=== PATIENT | male | born 1945 ===

== ENCOUNTER 2016-12-06 15:33 | Emergency (ER) | payer MEDICARE ==
[2016-12-06 15:48] VITALS: BP 148/83; PULSE 63; RESP 18; TEMP 98.1; BMI 26.7
--- NOTE | 2016-12-06 15:57 | ED PDOC ---
Arrival/HPI - General Time Seen by Provider: 12/06/16 15:36 Historian: Patient - History of Present Illness Narrative History of Present Illness (Text): 12/06/16 15:53 71 y/o male, pmh including dm/hyperlipidemia, nkda, last tetanus doesn't remember, c/o lt. hand 2nd digit finger laceration by knife x 2 hours. pt. stated that he was trying to use the knife, accidentally slipped and cut the lt. hand 2nd digit tip, no numbness or tingling, no fever or chills, no headache or night sweat, no rash, bleeding resolved, no other medical or psychological complaints. Past Medical History - Provider Review Nursing Documentation Reviewed: Yes - Infectious Disease Hx of Infectious Diseases: None - Tetanus Immunization Tetanus Immunization: Unknown - Cardiac Hx Hyperlipemia: Yes Hx Hypertension: Yes - Neurological Hx Paralysis: No - Endocrine/Metabolic Hx Diabetes Mellitus Type 2: Yes - Hematological/Oncological Hx Blood Transfusion Reaction: (NA) - Musculoskeletal/Rheumatological Hx Musculoskeletal Disorders: No - Psychiatric Hx Psychophysiologic Disorder: No Hx Anxiety: No Hx Bipolar Disorder: No Hx Depression: No Hx Emotional Abuse: No Hx Hallucinations: No Hx Panic Disorder: No Hx Paranoia: No Hx Post Traumatic Stress Disorder: No Hx Psychosis: No Hx Physical Abuse: No Hx Schizophrenia: No Hx Sexual Abuse: No Hx Substance Use: No - Anesthesia Hx Anesthesia: Yes Hx Anesthesia Reactions: No Hx Malignant Hyperthermia: No - Suicidal Assessment Feels Threatened In Home Enviroment: No Family/Social History - Physician Review Nursing Documentation Reviewed: Yes Family/Social History: Unknown Family HX Smoking Status: Never Smoked Hx Alcohol Use: No Hx Substance Use: No Hx Substance Use Treatment: No Allergies/Home Meds Allergies/Adverse Reactions: Allergies No Known Allergies Allergy (Verified 12/06/16 15:49) Home Medications: Home Meds Medication Instructions Recorded Confirmed Atorvastatin [Lipitor] 40 mg PO Q48H 06/27/13 12/06/16 metFORMIN [glucOPHAGE] 500 mg PO BID 12/06/16 12/06/16 Review of Systems - Review of Systems Constitutional: absent: Fatigue, Fevers Eyes: absent: Vision Changes ENT: absent: Hearing Changes Respiratory: absent: SOB, Cough Cardiovascular: absent: Chest Pain Gastrointestinal: absent: Abdominal Pain, Nausea, Vomiting Skin: Laceration. absent: Rash, Pruritis, Skin Lesions, Abscess, Ulcer, Cellulitis Neurological: absent: Headache, Dizziness Physical Exam Vital Signs Reviewed: Yes Vital Signs Temp Pulse Resp BP Pulse Ox 12/06/16 16:17 98.1 F 63 18 148/83 95 12/06/16 15:48 98.1 F 63 18 148/83 95 Temperature: Afebrile Blood Pressure: Normal Pulse: Regular Respiratory Rate: Normal Appearance: Positive for: Well-Appearing, Non-Toxic, Comfortable Pain Distress: Mild Mental Status: Positive for: Alert and Oriented X 3 - Systems Exam Head: Present: Atraumatic, Normocephalic Pupils: Present: PERRL Extroacular Muscles: Present: EOMI Conjunctiva: Present: Normal Mouth: Present: Moist Mucous Membranes Respiratory/Chest: Present: Clear to Auscultation, Good Air Exchange. No: Respiratory Distress, Accessory Muscle Use Cardiovascular: Present: Regular Rate and Rhythm, Normal S1, S2. No: Murmurs Abdomen: Present: Normal Bowel Sounds. No: Tenderness, Distention, Peritoneal Signs Upper Extremity: Present: Normal Inspection, Other (lt. hand 2nd digit distal ventral pad region approx. 1.25cm superficial laceration, FROM without limitation ,sensation intact, motor 5/5, normal 2pts. finger discrimination. ). No: Cyanosis, Edema Lower Extremity: Present: Normal Inspection. No: Edema Neurological: Present: GCS=15, Speech Normal, Motor Func Grossly Intact, Gait Normal, Memory Normal Skin: Present: Warm, Dry, Normal Color. No: Rashes Psychiatric: Present: Alert, Oriented x 3, Normal Insight, Normal Concentration Medical Decision Making ED Course and Treatment: 12/06/16 15:59 -clindamycin/tdap -sensation intact, motor 5/5, wound irrigate with normal saline 1000cc, clean with betadine, 1% lidocaine digital block on the lt. hand 2nd digit with 1.5cc, 5-0 nylon made 4 sutures, hemostasis obtained, bacitracin apply, gauze dressing , sensation intact, motor 5/5. -Discharge home with clindamycin, bacitracin oinment, take tylenol or motrin for pain, follow up with your own pmd and hand specialist within 2 days, sutures need to be removed by day 11-12 , avoid strenuous exercise or activity, follow up with your own pmd and hand specialist within 2 days, return to the ER for any new or worsening signs or symptoms. 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 Disposition/Present on Arrival - Present on Arrival Any Indicators Present on Arrival: No History of DVT/PE: No History of Uncontrolled Diabetes: No Urinary Catheter: No History of Decub. Ulcer: No History Surgical Site Infection Following: None - Disposition Have Diagnosis and Disposition been Completed?: Yes Diagnosis: Finger laceration Disposition: HOME/ ROUTINE Disposition Time: 16:01 Patient Plan: Discharge Patient Problems: Current Active Problems Problem Status Onset Finger laceration Acute Condition: GOOD Additional Instructions: -Discharge home with clindamycin, bacitracin oinment, take tylenol or motrin for pain, follow up with your own pmd and hand specialist within 2 days, sutures need to be removed by day 11-12 , avoid strenuous exercise or activity, follow up with your own pmd and hand specialist within 2 days, return to the ER for any new or worsening signs or symptoms. Prescriptions: Acetaminophen [Tylenol 325mg tab] 2 tab PO QID PRN #30 tab PRN Reason: Other RX: Bacitracin Ointment [Bacitracin] 1 appful TOP BID #15 g RX: Clindamycin [Cleocin] 300 mg PO TID #27 cap Referrals: Nayla Obando MD [Non-Staff] - [place] up with primary [facility] [place] - Follow up with primary Forms: WORK NOTE
[2016-12-06] MEDS ORDERED: TDAP Vaccine 0.5 mL Syr IM ONE (16:02)
[2016-12-06] MEDS ORDERED: Lidocaine 2% Inj (20ml) IJ STA (16:02)
[2016-12-06 16:36] VITALS: O2SAT 99
== END 2016-12-06 16:36 | disposition home or self-care (01) ==
LOC: ED 15:33
DX: S61.211A Laceration without foreign body of left index finger without damage to nail, initial encounter (principal); W26.0XXA Contact with knife, initial encounter; Y93.G3 Activity, cooking and baking; Y92.000 Kitchen of unspecified non-institutional (private) residence as the place of occurrence of the external cause; Z23 Encounter for immunization

== ENCOUNTER 2017-06-18 13:14 | Inpatient (IN) | payer OTHER, MEDICARE ==
[2017-06-18 13:15] VITALS: BMI 26.7
[2017-06-18] MEDS ORDERED: Iohexol 350 MG/100 ML VIAL ONE (14:29)
[2017-06-18 14:35] LABS: BASO # 0.03 K/mm3 (0.0-2.0); BASO % 0.3 % (0.0-3.0); EOS # 0.2 (0.0-0.7); EOS % 2.1 % (1.5-5.0); GRAN # 7.62 (1.4-6.5); GRAN % 77.2 % (50.0-68.0); HEMOGLOBIN 14.6 g/dL (14.0-18.0); LYMPH # 1.6 (1.2-3.4); LYMPH % 16.2 % (22.0-35.0); MEAN CORPUSCULAR HEMOGLOBIN 28.1 pg (25.0-35.0); MEAN CORPUSCULAR HGB CONC 33.9 g/dl (31.0-37.0); MEAN PLATELET VOLUME 9.3 fl (7.0-11.0); MONO # 0.4 (0.1-0.6); MONO % 4.2 % (1.0-6.0); RBC 5.19 10^6/uL (3.5-6.1); RED CELL DISTRIBUTION WIDTH 13.7 % (11.5-14.5); WHITE BLOOD COUNT 9.9 10^3/ul (4.5-11.0)
[2017-06-18 14:46] LABS: ALB/GLOB RATIO 1.6 (1.1-1.8); ALBUMIN 4.7 g/dL (3.0-4.8); ALT/SGPT 41 U/L (7-56); AST/SGOT 24 U/L (17-59); BLOOD UREA NITROGEN 16 mg/dL (7-21); CALCIUM 9.7 mg/dL (8.4-10.5); GFR AFRICAN-AMERICAN > 60; GFR NON-AFRICAN AMERICAN > 60; HDL CHOLESTEROL 45 mg/dL (29-60)
[2017-06-18 14:50] LABS: INR 1.15 (0.93-1.08); PARTIAL THROMBOPLASTIN TIME 31.8 Seconds (25.1-36.5); PROTHROMBIN TIME 13.1 SECONDS (9.4-12.5)
--- NOTE | 2017-06-18 14:50 | CT ---
PROCEDURE: CT HEAD WITHOUT CONTRAST. HISTORY: Code Stroke COMPARISON: None available. TECHNIQUE: Axial computed tomography images were obtained through the head/brain without intravenous contrast. Radiation dose: Total exam DLP = 831.68 mGy-cm. This CT exam was performed using one or more of the following dose reduction techniques: Automated exposure control, adjustment of the mA and/or kV according to patient size, and/or use of iterative reconstruction technique. FINDINGS: HEMORRHAGE: No intracranial hemorrhage. BRAIN: Iraheta-white matter differentiation is preserved. There is no mass, mass effect or abnormal extra-axial fluid collection. There is no territorial infarction. VENTRICLES: The ventricles are normal in size, shape and configuration. CALVARIUM: The skull base and calvarium are normal. PARANASAL SINUSES: Predominantly clear. MASTOID AIR CELLS: Predominantly clear. OTHER FINDINGS: None. IMPRESSION: No acute intracranial abnormality. If there is a persistent focal neurologic deficit and an ongoing clinical concern for acute infarction, an MRI of the brain without intravenous contrast would be a more sensitive modality for evaluation of hyperacute/acute ischemic infarction. Important findings were discussed with Dr. Juan Jose Pratt in the ER on 06/18/2017 at 2:45 p.m.
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
[2017-06-18 14:57] LABS: LDL CHOLESTEROL 60 mg/dL (0-129)
[2017-06-18 15:00] LABS: TROPONIN I < 0.01 ng/mL
--- NOTE | 2017-06-18 15:01 | RAD ---
HISTORY: Code Stroke COMPARISON: 02/12/2014 FINDINGS: LUNGS: The lungs are well inflated and clear. PLEURA: No significant pleural effusion identified, no pneumothorax apparent. CARDIOVASCULAR: Normal. OSSEOUS STRUCTURES: No significant abnormalities. VISUALIZED UPPER ABDOMEN: Normal. OTHER FINDINGS: None. IMPRESSION: No active pulmonary disease.
[2017-06-18] MEDS ORDERED: Aspirin 325 mg EC Tablets PO STA (15:21)
--- NOTE | 2017-06-18 15:45 | CT ---
PROCEDURE: CTA HEAD AND NECK WITH CONTRAST HISTORY: code stroke COMPARISON: None available. TECHNIQUE: Initial noncontrast head CT was performed. Subsequently, CT angiogram of the head and neck were performed after the intravenous administration of 80 mL of Omnipaque 350. Contiguous 1.5mm thick images were obtained in the axial plane of the neck. 2-D coronal and sagittal MPR images were obtained. Imaging postprocessing was performed with 3-D images also obtained. A delayed contrast head CT was also obtained. This CT exam was performed using one or more of the following dose reduction techniques: Automated exposure control, adjustment of the mA and/or kV according to patient size, and/or use of iterative reconstruction technique. Contrast dose: 100 mL Omnipaque 350 Radiation dose: Total exam DLP = 564.73 MGy-cm. FINDINGS: HEAD: Right: The intracranial internal carotid artery, and anterior and middle cerebral arteries are widely patent. Left: The intracranial internal carotid artery, and anterior and middle cerebral arteries are widely patent. Posterior circulation: The visualized intracranial vertebral arteries, basilar artery and posterior cerebral arteries are widely patent. Ther is no endoluminal filling defect to suggest thrombus. There is no intracranial saccular aneurysm. There is no abnormal enhancement on the postcontrast CT. NECK: There is a three vessel aortic arch. There is no stenosis at the origins of the great vessels at the level of the aortic arch. Right Carotid: On the right, the common carotid, internal carotid and external carotid arteries are widely patent. There is no hemodynamically significant stenosis in the internal carotid artery by NASCET criteria. Left Carotid: On the left, the common carotid, internal carotid and external carotid arteries are widely patent. There is no hemodynamically significant stenosis in the internal carotid artery by NASCET criteria. The vertebral arteries are widely patent. The left vertebral artery is dominant, an anatomic variant. The visualized soft tissues of the neck are normal. The visualized brain and cervical spine are within normal limits. The lung apices are clear. IMPRESSION: 1. No evidence of endoluminal, occlusion or definite significant stenosis. 2. No evidence of hemodynamically significant stenosis in the internal carotid arteries by NASCET criteria. 3. Patent bilateral vertebral arteries. The left vertebral artery is dominant, an anatomic variant
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
--- NOTE | 2017-06-18 16:29 | MRI ---
PROCEDURE: MRI BRAIN WITHOUT CONTRAST HISTORY: code stroke; r/o CVA COMPARISON: Noncontrast head CT performed earlier the same day TECHNIQUE: Multiplanar, multisequence MR images of the brain were obtained without intravenous contrast enhancement. FINDINGS: HEMORRHAGE: None DWI: No evidence of an acute or early subacute infarction. BRAIN PARENCHYMA: There are mild chronic microangiopathic changes. There is no mass, mass effect or abnormal extra-axial fluid collection. The midline sagittal structures are normal. There is no territorial infarction. VENTRICLES: There is mild age-related global parenchymal volume loss and proportionate enlargement of the ventricles and cortical sulci. CRANIUM: There is normal bone marrow signal pattern. ORBITS: Grossly unremarkable. PARANASAL SINUSES/MASTOIDS: Predominantly clear. VASCULAR SYSTEM: There are normal signal voids in the larger intracranial arteries. . OTHER FINDINGS: None. IMPRESSION: No acute intracranial abnormality. Mild chronic microangiopathic changes and mild age-related global parenchymal volume loss.
[2017-06-18] MEDS: Sodium Chloride 0.9% 1,000 ML IV SCH (16:51)
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
--- NOTE | 2017-06-18 19:25 | CARD ---
APPROVED REPORT EKG Measurement Heart [id number] <Conclusion> Normal sinus rhythm Normal ECG
[2017-06-18] MEDS: Insulin Reg-MEDIUM-Coverage SC SCH (22:39)
[2017-06-19] MEDS: Sodium Chloride 0.9% 1,000 ML IV SCH (00:31)
[2017-06-19 08:26] VITALS: O2SAT 99
[2017-06-19] MEDS: Insulin Reg-MEDIUM-Coverage SC SCH (08:28)
[2017-06-19] MEDS ORDERED: Enoxaparin 40 mg Syringe SC SCH (10:00)
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
[2017-06-19 13:26] VITALS: BP 133/83; PULSE 61; RESP 20; TEMP 97.5
--- NOTE | 2017-06-19 23:35 | CARD ---
APPROVED REPORT EXAM: Two-dimensional and M-mode echocardiogram with Doppler and color Doppler. INDICATION 2D DIMENSIONS Left Atrium (2D)3.6 (1.6-4.0cm)IVSd1.2 (0.7-1.1cm) LVDd4.4 (3.9-5.9cm)PWd1.1 (0.7-1.1cm) LVDs3.0 (2.5-4.0cm)FS (%) 31.7 % LVEF (%)60.0 (>50%) M-Mode DIMENSIONS Left Atrium (MM)4.00 (2.5-4.0cm)Aortic Root2.90 (2.2-3.7cm) Aortic Cusp Exc.1.90 (1.5-2.0cm) Aortic Valve AoV Peak Uveauwbb425.0cm/Radha Peak GR.9mmHg Mitral Valve MV E Nxgjrhnh28.4cm/sMV A Ctfjpzuz86.1cm/sE/A ratio0.9 TDI Lateral E' Peak V10.30cm/sMedial E' Peak V6.82cm/sE/Lateral E'4.8 E/Medial E'7.2 Tricuspid Valve TR Peak Ltccuovk043oc/sRAP [id number] Peak Gr.23mmHg [id number] LEFT VENTRICLE The left ventricle is normal size. There is borderline concentric left ventricular hypertrophy. The left ventricular function is normal. The left ventricular ejection fraction is within the normal range. There is normal LV segmental wall motion. Transmitral Doppler flow pattern is Grade I-abnormal relaxation pattern. RIGHT VENTRICLE The right ventricle is normal size. There is normal right ventricular wall thickness. The right ventricular systolic function is normal. ATRIA The left atrium size is normal. The right atrium size is normal. AORTIC VALVE The aortic valve is normal in structure. No aortic regurgitation is present. There is no aortic valvular stenosis. MITRAL VALVE The mitral valve is normal in structure. Mitral regurgitation is trace. There is no mitral valve stenosis. TRICUSPID VALVE The tricuspid valve is normal in structure. There is no tricuspid valve regurgitation noted. PULMONIC VALVE The pulmonary valve is normal in structure. There is trace pulmonic valvular regurgitation. GREAT VESSELS The aortic root is normal in size. PERICARDIAL EFFUSION There is a trace loculated anterior pericardial effusion. <Conclusion> The left ventricle is normal size. There is borderline concentric left ventricular hypertrophy. The left ventricular function is normal. The left ventricular ejection fraction is within the normal range. There is normal LV segmental wall motion. Transmitral Doppler flow pattern is Grade I-abnormal relaxation pattern.
== END 2017-06-19 15:01 | disposition home or self-care (01) | DRG 884 ==
LOC: ED 13:14 → ERH 16:52 → 2RSO 18:32
PROVIDERS: ADMIT Internal Medicine; ATTEND Internal Medicine
DX: F03.90 Unspecified dementia, unspecified severity, without behavioral disturbance, psychotic disturbance, mood disturbance, and anxiety (principal); I25.10 Atherosclerotic heart disease of native coronary artery without angina pectoris; E11.51 Type 2 diabetes mellitus with diabetic peripheral angiopathy without gangrene; E78.5 Hyperlipidemia, unspecified; I10 Essential (primary) hypertension; V89.2XXA Person injured in unspecified motor-vehicle accident, traffic, initial encounter; Y92.481 Parking lot as the place of occurrence of the external cause; Z80.0 Family history of malignant neoplasm of digestive organs; Z80.51 Family history of malignant neoplasm of kidney

== ENCOUNTER 2018-06-01 08:33 | Outpatient (CLI) | payer MEDICARE | END 2018-06-01 08:34 | disposition home or self-care (01) | LOC: LAB 08:33 ==

== ENCOUNTER 2018-06-14 09:27 | Emergency (ER) | payer MEDICARE ==
[2018-06-14 09:45] VITALS: RESP 19
[2018-06-14 09:46] VITALS: BMI 26.4
--- NOTE | 2018-06-14 10:01 | ED PDOC ---
Arrival/HPI - General Chief Complaint: Lower Extremity Problem/Injury Time Seen by Provider: 06/14/18 09:28 Historian: Patient - History of Present Illness Narrative History of Present Illness (Text): 06/14/18 09:55 73-year-old male presents today with left hip and lateral thigh pain status post fall yesterday. Patient states yesterday while was raining he slipped and fell on the steps landing hitting the lateral aspect of the left leg on the edge of the step. No medications have been taken for pain at home. Patient denies hitting his head. He denies chest pain or shortness of breath. He denies abdominal pain. He denies nausea vomiting diarrhea constipation. He denies numbness weakness or tingling in the extremity. Patient states the pain is worse when he tries to raise his leg. Patient denies back pain. No urinary symptoms. No bladder or bowel incontinence. No other complaints Past Medical History - Provider Review Nursing Documentation Reviewed: Yes - Travel History Have you recently traveled outside [place] w/in the past 3 mons?: No - Past History Past History: No Previous - Infectious Disease Hx of Infectious Diseases: None - Tetanus Immunization Tetanus Immunization: Unknown - Cardiac Hx Cardiac Disorders: Yes Hx Angina: Yes Hx Hypertension: Yes Hx Pacemaker: No Hx Peripheral Edema: Yes Hx Peripheral Vascular Disease: Yes - Pulmonary Hx Respiratory Disorders: Yes Hx Asthma: Yes Hx Bronchitis: Yes Hx Respiratory Tract Infection: Yes - Neurological Hx Neurological Disorder: Yes Hx Dizziness: Yes Hx Paralysis: No - HEENT Hx HEENT Disorder: Yes Hx Cataracts: Yes (pt was told has cararact problem) - Renal Hx Renal Disorder: No Hx Kidney Stones: No Hx Neurogenic Bladder: No Hx Pyelonephritis: No Hx Renal Cancer: No Hx Renal Failure: No - Endocrine/Metabolic Hx Endocrine Disorders: Yes Hx Adrenal Cancer: No Hx Diabetes Insipidus: No Hx Diabetes Mellitus Type 1: Yes Hx Diabetes Mellitus Type 2: Yes Hx Hyperthyroidism: No Hx Hypothyroidism: No Hx Systemic Lupus Erythematosus: No - Hematological/Oncological Hx Blood Disorders: Yes Hx Anemia: Yes Hx Blood Transfusions: No Hx Blood Transfusion Reaction: (NA) Hx Hemophilia: No Hx Sickle Cell Disease: No - Integumentary Hx Dermatological Disorder: No - Musculoskeletal/Rheumatological Hx Musculoskeletal Disorders: Yes Hx Arthritis: Yes Hx Back Pain: No Hx Degenerative Joint Disease: No Hx Falls: Yes Hx Fractures: Yes Hx Gout: No Hx Herniated Disk: No Hx Myasthenia Gravis: No Hx Osteoarthritis: No Hx Osteomyelitis: No Hx Osteoporosis: No Hx Rhabdomyolysis: No Hx Spinal Stenosis: No Hx Unsteady Gait: No Other/Comment: POOR CIRCULATION TO LEGS - Gastrointestinal Hx Gastrointestinal Disorders: Yes Hx Colostomy: No Hx Crohn's Disease: No Hx Diverticulitis: No Hx Gall Bladder Disease: No Hx Gastroesophageal Reflux: Yes Hx Ileostomy: No Hx Liver Failure: No Hx Pancreatitis: No HX Swallowing Problems: No - Genitourinary/Gynecological Hx Genitourinary Disorders: No Hx Hematuria: No Hx Incontinence: No Hx Prostate Problems: No Hx Sexually Transmitted Diseases: No Hx Urinary Tract Infection: No Other/Comment: Pt states he feels he coud urinate more, than he does. - Psychiatric Hx Psychophysiologic Disorder: No Hx Anxiety: No Hx Bipolar Disorder: No Hx Depression: No Hx Emotional Abuse: No Hx Hallucinations: No Hx Panic Disorder: No Hx Post Traumatic Stress Disorder: No Hx Psychosis: No Hx Physical Abuse: No Hx Schizophrenia: No Hx Sexual Abuse: No Hx Substance Use: No - Surgical History Hx Cataract Extraction: Yes Hx Coronary Stent: Yes (?) Other/Comment: MASS REMOVED FROM SCALP - Anesthesia Hx Anesthesia: Yes Hx Anesthesia Reactions: No Hx Malignant Hyperthermia: No - Suicidal Assessment Feels Threatened In Home Enviroment: No Family/Social History - Physician Review Nursing Documentation Reviewed: Yes Family/Social History: Unknown Family HX Smoking Status: Never Smoked Hx Alcohol Use: No Hx Substance Use: No Hx Substance Use Treatment: No Allergies/Home Meds Allergies/Adverse Reactions: Allergies No Known Allergies Allergy (Verified 03/24/18 09:45) Home Medications: Home Meds Medication Instructions Recorded Confirmed Donepezil [Aricept] 10 mg PO HS 06/19/17 03/24/18 Lisinopril [Zestril] 20 mg PO DAILY 06/19/17 03/24/18 MetFORMIN [glucoPHAGE] 1,000 mg PO BID 06/19/17 03/24/18 SITagliptin [Januvia] 100 mg PO DAILY 03/24/18 03/24/18 Vitamin B Complex 1 each PO DAILY 03/24/18 03/24/18 Review of Systems - Review of Systems Constitutional: absent: Fatigue, Fevers Respiratory: absent: SOB, Cough Cardiovascular: absent: Chest Pain, Palpitations Gastrointestinal: absent: Abdominal Pain, Nausea, Vomiting Genitourinary Male: absent: Dysuria, Frequency, Hematuria, Urinary Output Changes Musculoskeletal: Arthralgias. absent: Back Pain, Neck Pain Skin: absent: Rash, Pruritis Neurological: absent: Headache, Dizziness Psychiatric: absent: Anxiety, Depression Physical Exam Vital Signs Reviewed: Yes Vital Signs Temp Pulse Resp BP Pulse Ox 06/14/18 09:36 97.4 F L 69 19 165/70 H 99 Temperature: Afebrile Blood Pressure: Normal Pulse: Regular Respiratory Rate: Normal Appearance: Positive for: Well-Appearing, Non-Toxic, Comfortable Pain Distress: None Mental Status: Positive for: Alert and Oriented X 3 - Systems Exam Head: Present: Atraumatic Neck: Present: Normal Range of Motion Respiratory/Chest: Present: Clear to Auscultation, Good Air Exchange. No: Respiratory Distress, Accessory Muscle Use Cardiovascular: Present: Regular Rate and Rhythm, Normal S1, S2. No: Murmurs Abdomen: Present: Other (no ecchymosis). No: Tenderness, Distention, Rebound, Guarding Upper Extremity: Present: Normal Inspection, Normal ROM Lower Extremity: Present: Tenderness (left leg: + ttp over greater trochanter. + ttp over IT band; no edema, no erythema; no ecchymosis. no TTP over joint; limited abduction of hip with pain. sensation and distal pulses intact. cap refill < 2. ), Capillary Refill < 2 s. No: Swelling, Erythema Neurological: Present: GCS=15, Speech Normal Skin: Present: Warm, Dry, Normal Color. 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 The sacroiliac joints are normal. There is mild osteitis pubis. SOFT TISSUES: Normal. OTHER FINDINGS: None. IMPRESSION: No acute displaced fracture or dislocation. Please note occult fractures cannot be excluded on plain radiographs. If there is a persistent clinical concern, an MRI of the hip may be performed for further evaluation. xray of left femur: FINDINGS: FEMUR: Bone alignment and mineralization are normal. There is no acute displaced fracture or bone destruction. SOFT TISSUES: Normal. OTHER FINDINGS: None. IMPRESSION: No acute fracture or dislocation. tramadol given Po pt reassessment; pt is non toxic well appearing; no distress. discussed all results with patient in depth; advised f/u with PMD and orthopedist within the next 2 days. advised taking tylenol every 4 hours as needed for pain. Patient verbalizes understanding of discharge instructions and need for immediate followup. All aspects of this case were discussed the attending of record. impression: hip pain, leg pain tylenol every 4 hours as needed for pain use cane for ambulation follow up with the orthopedist within the next 2 days. Follow up with the primary care within the next 2 days. return immediately if symptoms worsen,persist or if new symptoms develop. Reassessment Condition: Re-examined, Improved - RAD Interpretation Radiology Orders: 06/14/18 09:53 Femur Left [FEMUR MIN 2 VIEWS LT] [RAD] Stat Hip Left [HIP MIN 2V W/ PELVIS LT] [RAD] Stat Disposition/Present on Arrival - Present on Arrival Any Indicators Present on Arrival: Yes History of DVT/PE: No History of Uncontrolled Diabetes: Yes Urinary Catheter: No History of Decub. Ulcer: No History Surgical Site Infection Following: None - Disposition Have Diagnosis and Disposition been Completed?: Yes Diagnosis: Leg pain, Hip pain Disposition: HOME/ ROUTINE Disposition Time: 10:22 Patient Plan: Discharge Condition: GOOD Discharge Instructions (ExitCare): Hip Pain (DC) Additional Instructions: tylenol every 4 hours as needed for pain use cane for ambulation follow up with the orthopedist within the next 2 days. Follow up with the primary care within the next 2 days. return immediately if symptoms worsen,persist or if new symptoms develop. Referrals: Aleksey Cruz MD [Primary Care Provider] - Follow up with primary Bjorn Caceres DO [Staff Provider] - Follow up with primary Forms: [employer] (Czech)
--- NOTE | 2018-06-14 10:57 | RAD ---
Date of service: 06/14/2018 PROCEDURE: Left Femur Radiographs. HISTORY: Fall, left lateral thigh pain, COMPARISON: None. TECHNIQUE: AP and Lateral Radiographs of the left femur. 2 views obtained. FINDINGS: FEMUR: Bone alignment and mineralization are normal. There is no acute displaced fracture or bone destruction. SOFT TISSUES: Normal. OTHER FINDINGS: None. IMPRESSION: No acute fracture or dislocation.
--- NOTE | 2018-06-14 11:01 | RAD ---
PROCEDURE: Left Hip X-ray Radiographs. HISTORY: hip pain COMPARISON: None. TECHNIQUE: 3 views obtained. FINDINGS: BONES: Bone alignment and mineralization are normal. There is no acute displaced fracture or bone destruction. 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 The sacroiliac joints are normal. There is mild osteitis pubis. SOFT TISSUES: Normal. OTHER FINDINGS: None. IMPRESSION: No acute displaced fracture or dislocation. Please note occult fractures cannot be excluded on plain radiographs. If there is a persistent clinical concern, an MRI of the hip may be performed for further evaluation.
[2018-06-14 12:02] VITALS: BP 145/74; PULSE 63; TEMP 97; O2SAT 100
== END 2018-06-14 12:00 | disposition home or self-care (01) ==
LOC: ED 09:27
DX: M25.552 Pain in left hip (principal); M79.605 Pain in left leg

== ENCOUNTER 2018-06-24 11:31 | Outpatient (CLI) | payer MEDICARE | END 2018-06-24 11:32 | disposition home or self-care (01) | LOC: RAD 11:31 ==